=== PATIENT | female | born 1985 | race Asian ===

== ENCOUNTER 2016-10-08 05:40 | Day surgery (SDC) | payer OTHER ==
[2016-10-08] VITALS (11 sets, daily range): BP systolic 105–122; BP diastolic 57–72; PULSE 66–81; RESP 15–20; Ht 152.4 cm; Wt 49.2 kg
[~2016-10-08] VITALS: Ht 152.4 cm; Wt 49.2 kg
--- NOTE | 2016-10-08 05:16 | PREOPHP ---
DATE OF ADMISSION: 10/08/2016 HISTORY OF PRESENT ILLNESS: This is a 31-year-old lady, 0. Her last normal menstrual perio d was few days prior to admission. She was admitted for LEEP and D and C. This patient had an abno rmal Pap smear hydrate HENRRY and colposcopy biopsy done and it showed NEFTALY 2. Because of the above, sh martin was admitted for LEEP and D and C. The procedures were explained to the patient and she understoo d everything totally. The risks, benefits, alternatives were discussed with her as well. PAST PERSONAL HISTORY: No history of TB, asthma. ALLERGIES: NO ALLERGIES. SOCIAL HISTORY: Patient does not smoke. She does not drink. MEDICATIONS: She does not take any drugs except she does not take any drugs. FAMILY HISTORY: Grandfather has diabetes on mother's side. REVIEW OF SYSTEMS: CARDIOVASCULAR: No chest pains. RESPIRATORY: No cough. GASTROINTESTINAL: No diarrhea, no vomiting. GENITOURINARY: No dysuria. PHYSICAL EXAMINATION: GENERAL: Reveals a conscious coherent lady in no acute distress. VITAL SIGNS: Her blood pressure 120/80, pulse rate 80 per minute, respirations 16 per minute. BREASTS, HEART AND LUNGS: Within normal limits. ABDOMEN: Soft. No organomegaly. PELVIC: Revealed the cervix to be firm, uterus of normal size, and adnexa were negative for masses. RECTAL: Confirmed the pelvic findings. EXTREMITIES: No pedal edema. ASSESSMENT: Cervical intraepithelial neoplasia 2. The patient to rule out invasive carcinoma. PLAN: The patient was planned to have the above procedure. Dictated By: HUSAM DAVIS/MABEL Conf#: [id number] DID#: [id number]
[2016-10-08] MEDS ORDERED: ONDANSETRON 4 MG INJ IV PRN (06:30)
[2016-10-08] MEDS ORDERED: DIPHENHYDRAMINE 50 MG INJ IV PRN (06:30)
[2016-10-08] MEDS ORDERED: EPHEDrine SULFATE 50 MG/5 ML SYG IV PRN (06:30)
[2016-10-08] MEDS ORDERED: OXYCODONE/ACETAMINOPHEN (5/325) TAB PO PRN ×2 (06:30)
[2016-10-08] MEDS ORDERED: FENTAnyl 50 MCG/ML VIAL IV PRN ×2 (06:30)
[2016-10-08] MEDS ORDERED: MIDAZOLAM 1 MG/ML 2 ML INJ IV PRN (06:30)
[2016-10-08] MEDS ORDERED: morphine (1 MG/ML) 10ML SYRINGE IV PRN ×3 (06:30)
[2016-10-08] MEDS ORDERED: hydrALAzine 20 MG INJ IV PRN (06:30)
[2016-10-08] MEDS ORDERED: MEPERIDINE 25 MG INJ IV PRN (06:30)
[2016-10-08] MEDS ORDERED: ATROPINE 1 MG/10 ML SYRINGE IV PRN (06:30)
[2016-10-08] MEDS ORDERED: HYDROmorphONE (0.2 MG/ML) 10ML SYG IV PRN ×3 (06:30)
[2016-10-08] MEDS ORDERED: LABETALOL HCL 20MG INJ IV PRN (06:30)
[2016-10-08] MEDS ORDERED: GLYCOPYRROLATE 0.4 MG INJ ONE (06:31)
[2016-10-08] MEDS ORDERED: ROCURONIUM 50 MG INJ ONE (06:31)
[2016-10-08] MEDS ORDERED: LIDOCAINE 2% (SDV) 5 ML INJ ONE (06:31)
[2016-10-08] MEDS ORDERED: NEOSTIGMINE 3 MG/3 ML SYRINGE ONE (06:31)
[2016-10-08] MEDS ORDERED: PROPOFOL 20 ML ONE (06:31)
[2016-10-08] MEDS ORDERED: MIDAZOLAM 1 MG/ML 2 ML INJ ONE (06:32)
[2016-10-08] MEDS ORDERED: FENTAnyl 50 MCG/ML VIAL ONE (06:32)
[2016-10-08] MEDS ORDERED: ONDANSETRON 4 MG INJ ONE (06:35)
[2016-10-08] MEDS ORDERED: STRONG IODINE 14 ML SOLUTION TOP ONE (07:07)
[2016-10-08] MEDS ORDERED: CEFAZOLIN 1 GM INJ ONE (07:42)
[2016-10-08] MEDS ORDERED: ACETAMINOPHEN 325 MG TAB PO PRN (09:00)
--- NOTE | 2016-10-10 05:36 | OPR ---
DATE OF OPERATION: 10/08/2016 PREOPERATIVE DIAGNOSES: Cervical intraepithelial neoplasia 2 per colposcopic directed biopsy. POSTOPERATIVE DIAGNOSIS: Pending pathology report. SURGEON: Soni Norton MD STALLION KEEPER: Eliza lomeli. ANESTHESIA: General. OPERATION PERFORMED: LEEP and D and C. OPERATIVE TECHNIQUE: Under general anesthesia, the patient was prepped and draped in the usual [facility] ion for vaginal surgery. Pelvic exam under anesthesia revealed the cervix to be firm, uterus of nor mal size, and adnexa were negative for masses. Then, the heavy weight vaginal retractor was put in place and the anterior lip of the cervix was grasped with an Allis clamp. The cervix and vagina was dabbed with Lugol's solution. Most the external os of the cervix did not take the Lugol's. So, th e loop was passed from left to right on the anterior lip of the cervix and from left to right on the posterior lip of the cervix. A good amount of tissue was obtained followed by a smaller loop passe d up to the endocervical canal. A good amount of tissue was obtained. Endocervical curettage was d one, and small amount of tissue was obtained. Endometrial curettage was done, and a small amount of tissue was obtained. The site of the biopsy was cauterized with ball cautery. There was no bleedi ng noted after the procedure. A small piece of Surgicel was left at the site of the biopsy. The pa tient tolerated the procedure well. Estimated blood loss was minimal. Vital signs were stable duri ng and after the procedure. Dictated By: SONI NORTON MD NS/NTS Conf#: [id number] DID#: [id number]
== END 2016-10-08 09:45 | disposition home or self-care (01) ==
LOC: SDS 05:40
PROVIDERS: ATTEND Obstetrics & Gynecology
DX: N72 Inflammatory disease of cervix uteri (principal)
CPT/HCPCS: 57522; 84702; 86850; 86900; 86901; 88305; J0690; J2250; J2405; J2710; J3010